=== PATIENT | male | born 1930 | race Caucasian/White ===

== ENCOUNTER 2019-12-03 15:51 | Inpatient (IN) | payer MEDICARE ==
[2019-12-03 16:32] LABS: #Eosinphils 0.1 thou/uL (0.0-0.7); #Lymphocytes 0.8 thou/uL (1.20-3.40); #Monocytes 0.6 thou/uL (0.11-0.59); %Basophils 0.2 % (0.0-1.0); %Eosinophils 0.9 % (0.0-10.0); %Lymphocytes 6.3 % (21.0-51.0); %Monocytes 5.1 % (0.0-10.0); %Neutrophils 87.6 % (42.0-75.0); Mean Corpuscular HGB CONC 33.9 g/dL (32.0-36.0); Mean Corpuscular Hemoglobin 30.1 pg (27.0-31.0); Mean Corpuscular Volume 88.5 fL (78.0-98.0); Mean Platelet Volume 7.5 fL (7.4-10.4); Platelet Count 169 thou/uL (130-400); RBC Distribution Width 12.9 % (11.5-14.5); Red Blood Cell (RBC) Count 4.98 mill/uL (4.70-6.10); White Blood Cell (WBC) Count 12.5 thou/uL (4.8-10.8)
[2019-12-03 16:36] LABS: INR-International Normal Ratio 2.3; PTT 32.4 SEC (22.9-36.1); Prothrombin Time 25.1 SEC (12.0-14.7)
[2019-12-03 16:43] LABS: ALT (SGPT) 25 U/L (8-55); AST (SGOT) 32 U/L (5-34); Albumin 4.3 g/dL (3.4-4.8); Alkaline Phosphatase 68 U/L (40-110); Anion Gap 15 mmol/L (10-20); BUN (Urea Nitrogen) 17 mg/dL (8.4-25.7); Bilirubin, Total 0.7 mg/dL (0.2-1.2); Calc. Creatinine Clearance 0 mL/min (70-130); Calcium 9.3 mg/dL (7.8-10.44); Carbon Dioxide 20 mmol/L (23-31); Chloride 108 mmol/L (98-107); Estimated GFR-MDRD 88; Globulin 2.4 g/dL (2.4-3.5); Glucose 162 mg/dL (83-110); Protein, Total 6.7 g/dL (5.8-8.1); Sodium 139 mmol/L (136-145)
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
[2019-12-03 16:52] VITALS: BMI 29.1
[2019-12-03] MEDS ORDERED: Ondansetron PF 4 MG/2 ML Vial IVP PRN (17:03)
[2019-12-03] MEDS ORDERED: Dextrose 50% Abboject 50 ML SYRINGE SLOW IVP PRN (17:03)
[2019-12-03] MEDS ORDERED: Dextrose 5% in Water 1,000 ML IV PRN (17:03)
[2019-12-03] MEDS ORDERED: Acetaminophen 500 MG TAB PO PRN (17:06)
[2019-12-03] MEDS: Dexamethasone 4 mg/ml Vial SLOW IVP SCH (17:18)
[2019-12-03] MEDS ORDERED: Lactated Ringer's 1,000 ML IV SCH (17:45)
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
[2019-12-03] MEDS ORDERED: traMADol HCl 50 MG TAB PO PRN (18:31)
[2019-12-03] MEDS ORDERED: Cyclobenzaprine 10 MG TAB PO PRN (18:31)
[2019-12-03] MEDS ORDERED: Ibuprofen 600 MG TAB PO PRN (18:31)
[2019-12-03] MEDS ORDERED: Rosuvastatin 10 MG TAB PO SCH ×2 (21:00)
[2019-12-03] MEDS ORDERED: Digoxin 0.25 MG TAB PO SCH (21:00)
[2019-12-04] MEDS: Dexamethasone 4 mg/ml Vial SLOW IVP SCH ×3 (00:43→11:09)
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
[2019-12-04 03:29] LABS: #Lymphocytes 0.9 thou/uL (1.20-3.40); #Monocytes 0.4 thou/uL (0.11-0.59); #Neutrophils 7.7 thou/uL (1.40-6.50); %Basophils 0.1 % (0.0-1.0); %Eosinophils 0.1 % (0.0-10.0); %Lymphocytes 10.1 % (21.0-51.0); %Monocytes 4.5 % (0.0-10.0); %Neutrophils 85.3 % (42.0-75.0); Hemoglobin 14.3 g/dL (14.0-18.0); Mean Corpuscular Hemoglobin 30.9 pg (27.0-31.0); Mean Corpuscular Volume 88.3 fL (78.0-98.0); Mean Platelet Volume 7.7 fL (7.4-10.4); Platelet Count 178 thou/uL (130-400); RBC Distribution Width 12.9 % (11.5-14.5); Red Blood Cell (RBC) Count 4.61 mill/uL (4.70-6.10)
[2019-12-04 03:31] LABS: INR-International Normal Ratio 1.5; Prothrombin Time 17.8 SEC (12.0-14.7)
[2019-12-04 03:44] LABS: Anion Gap 13 mmol/L (10-20); BUN (Urea Nitrogen) 14 mg/dL (8.4-25.7); Calc. Creatinine Clearance 85 mL/min (70-130); Calcium 9.2 mg/dL (7.8-10.44); Carbon Dioxide 24 mmol/L (23-31); Chloride 105 mmol/L (98-107); Estimated GFR-MDRD Greater than 90; Glucose 161 mg/dL (83-110); Magnesium 1.8 mg/dL (1.6-2.6); Phosphorus 3.1 mg/dL (2.3-4.7); Potassium 4.2 mmol/L (3.5-5.1); Sodium 138 mmol/L (136-145)
[2019-12-04] MEDS ORDERED: Magnesium 2 GM/50 ML 2 GM in Premix Bag 1 BAG IVPB SCH (08:45)
[2019-12-04] MEDS ORDERED: Verapamil 80 MG TAB PO SCH (09:00)
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
[2019-12-04] MEDS ORDERED: Digoxin 0.25 MG TAB PO SCH (10:45)
[2019-12-04 11:03] VITALS: TEMP 99.3
[2019-12-04] MEDS ORDERED: Ibuprofen 200 MG TAB PO PRN (11:08)
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
[2019-12-04 13:20] VITALS: BP 151/79
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
== END 2019-12-04 16:00 | disposition home or self-care (01) | DRG 562 ==
LOC: ERS 15:51 → CCU 16:19
PROVIDERS: ADMIT Surgery; ATTEND Surgery
PROC: 5A1935Z Respiratory Ventilation, Less than 24 Consecutive Hours (ICD-10-PCS; principal; 2019-12-03)
DX: S42.032A Displaced fracture of lateral end of left clavicle, initial encounter for closed fracture (principal); J96.00 Acute respiratory failure, unspecified whether with hypoxia or hypercapnia; S22.31XA Fracture of one rib, right side, initial encounter for closed fracture; D68.8 Other specified coagulation defects; T45.515A Adverse effect of anticoagulants, initial encounter; R40.2412 Glasgow coma scale score 13-15, at arrival to emergency department; E07.89 Other specified disorders of thyroid; V04.90XA Pedestrian on foot injured in collision with heavy transport vehicle or bus, unspecified whether traffic or nontraffic accident, initial encounter; Z79.01 Long term (current) use of anticoagulants; Z88.0 Allergy status to penicillin
CPT/HCPCS: 36415; 70450; 80048; 80162; 83605; 83735; 84100; 85025; 85610; 86850; 86900; 86901; 94002; 94640; G0390; J1100; J3475; J7620

== ENCOUNTER 2019-12-31 11:38 | Outpatient (CLI) | payer MEDICARE, OTHER ==
[2020-01-01 18:34] LABS: SARS-CoV-2 MS2 Positive; SARS-CoV-2 N Gene Negative; SARS-CoV-2 S Gene Negative; SARS-CoV-2 orf1ab Negative
== END 2019-12-31 11:39 | disposition home or self-care (01) ==
LOC: LAB 11:38
PROVIDERS: ATTEND Specialist
DX: Z11.59 Encounter for screening for other viral diseases (principal)
CPT/HCPCS: 87635; U0003

== ENCOUNTER 2020-01-02 12:17 | Day surgery (SDC) | payer MEDICARE ==
[2020-01-02] MEDS ORDERED: Sodium Bicarbonate 2.5 MEQ/5 ML VIAL ONE (12:50)
[2020-01-02] MEDS ORDERED: Lidocaine 1% PF 5 ML VIAL ONE (12:50)
--- NOTE | 2020-01-02 14:13 | ULT ---
Sonographic guided fine needle aspiration left thyroid mass. HISTORY: Left thyroid mass. FINDINGS: After explaining the procedure and answering all questions, the large aggressive complex cy stic lesion at the left thyroid lobe was again visualized. Sterile technique, buffered local anesthesia, sonographic guidance, and an anterior lateral approach were used to carefully advance a 2 5-gauge needle into the solid component of the complex mass. A total of 4 25-gauge FNA samples were obtained. A 20-gauge spinal needle was then inserted into the cystic component of the lesion, and 10 cc of slig htly cloudy padmini liquid was aspirated and submitted to pathology. Postprocedure imaging shows no evidence of complication. Patient tolerated procedure well and was dismissed in good condition. IMPRESSION : Technically successful sonographic guided FNA left thyroid mass. Pathology is pending.
[2020-01-02 14:39] VITALS: BP 139/69; TEMP 98.8
== END 2020-01-02 13:40 | disposition home or self-care (01) ==
LOC: ULT 12:17
PROVIDERS: ATTEND Specialist
PROC: 0G9G3ZX Drainage of Left Thyroid Gland Lobe, Percutaneous Approach, Diagnostic (ICD-10-PCS; principal; 2020-01-02)
DX: E07.9 Disorder of thyroid, unspecified (principal); E04.9 Nontoxic goiter, unspecified; I25.10 Atherosclerotic heart disease of native coronary artery without angina pectoris; I48.91 Unspecified atrial fibrillation; I10 Essential (primary) hypertension; G62.9 Polyneuropathy, unspecified; I35.0 Nonrheumatic aortic (valve) stenosis; E78.00 Pure hypercholesterolemia, unspecified; Z79.01 Long term (current) use of anticoagulants; Z79.899 Other long term (current) drug therapy; Z88.0 Allergy status to penicillin
CPT/HCPCS: 60100; 76942; 88173; 88305; J2001

== ENCOUNTER 2020-02-03 07:59 | Outpatient (CLI) | payer MEDICARE, OTHER ==
[2020-02-03 16:17] LABS: Hemoglobin 14.9 g/dL (14.0-18.0)
[2020-02-03 16:28] LABS: Anion Gap 13 mmol/L (10-20); BUN (Urea Nitrogen) 15 mg/dL (8.4-25.7); Calc. Creatinine Clearance 0 mL/min (70-130); Calcium 9.7 mg/dL (7.8-10.44); Carbon Dioxide 27 mmol/L (23-31); Chloride 104 mmol/L (98-107); Estimated GFR-MDRD 76; Glucose 157 mg/dL (83-110); Potassium 4.1 mmol/L (3.5-5.1); Sodium 140 mmol/L (136-145)
[2020-02-04 12:45] LABS: SARS-CoV-2 MS2 Positive; SARS-CoV-2 N Gene Negative; SARS-CoV-2 S Gene Negative; SARS-CoV-2 orf1ab Negative
== END 2020-02-03 08:00 | disposition home or self-care (01) ==
LOC: LABBT 07:59
PROVIDERS: ATTEND Specialist
DX: Z01.818 Encounter for other preprocedural examination (principal); Z11.59 Encounter for screening for other viral diseases; Z51.81 Encounter for therapeutic drug level monitoring; E07.9 Disorder of thyroid, unspecified; R59.1 Generalized enlarged lymph nodes; R59.0 Localized enlarged lymph nodes; E04.9 Nontoxic goiter, unspecified; I48.91 Unspecified atrial fibrillation; R13.10 Dysphagia, unspecified; Z79.01 Long term (current) use of anticoagulants
CPT/HCPCS: 80048; 85014; 85018; U0003; 87635; 93005; 93010

== ENCOUNTER 2020-02-05 10:53 | Day surgery (SDC) | payer MEDICARE ==
[2020-02-02 12:06] VITALS: BMI 28.3
[2020-02-05 12:17] LABS: INR-International Normal Ratio 1.1; PTT 31.2 sec (22.9-36.1); Prothrombin Time 13.8 sec (12.0-14.7)
[2020-02-05] MEDS ORDERED: Fentanyl 250 MCG/5 ML VIAL ONE (12:42)
[2020-02-05] MEDS ORDERED: Lidocaine 1% w/Epinephrine 1:100K 20 ML VIAL ONE (13:20)
[2020-02-05] MEDS ORDERED: Succinylcholine Chloride 20 MG/ML 10 ml SYRINGE FS ONE (15:17)
[2020-02-05] MEDS ORDERED: Dexamethasone 20 MG/5 ML VIAL ONE (15:17)
[2020-02-05] MEDS ORDERED: Lidocaine 1% PF 5 ML VIAL ONE (15:17)
[2020-02-05] MEDS ORDERED: PROPOFOL 200 MG/20 ML VIAL ONE (15:17)
[2020-02-05] MEDS ORDERED: Ondansetron PF 4 MG/2 ML Vial ONE (15:17)
[2020-02-05] MEDS ORDERED: Labetalol HCl 100 MG/20 ML VIAL ONE (17:23)
[2020-02-05] MEDS ORDERED: Fentanyl 100 MCG/2 ML VIAL ONE (17:25)
--- NOTE | 2020-02-09 08:52 | OP ---
DATE OF PROCEDURE: 02/05/2020 PREOPERATIVE DIAGNOSES: 1. Large left thyroid mass. 2. Left substernal goiter. 3. Dysphagia. 4. Shortness of breath. POSTOPERATIVE DIAGNOSES: 1. Large left thyroid mass. 2. Left substernal goiter. 3. Dysphagia. 4. Shortness of breath. PROCEDURES PERFORMED: 1. Left thyroid lobectomy. 2. Resection of left thyroid substernal goiter using a laryngeal nerve monitoring for 2 hours. PROCEDURE IN DETAIL: After consent was obtained, the patient was identified and brought to the operating room and placed on the operating room table in supine position. General endotracheal anesthesia was obtained with a laryngeal nerve monitor and the tube was found to be placed correctly and functioning normally. It was then hooked up to the [facility] nerve monitor and again documented to be functioning normally. We then proceeded with prepping and draping the patient and was able to extend the neck slightly. An incision was made through a natural skin crease and carried down through the skin, subcutaneous tissues, and subplatysmal flap. We then continued to dissect through the platysma. Subplatysmal flaps were elevated inferiorly and superiorly and a self-retaining retractor was placed. Strap muscles were divided in the midline, at which time the capsule was encountered and found to be very friable. Once identified the thyroid, the strap muscle fascia was then dissected meticulously from the thyroid capsule. The thyroid was extremely large, and with significant difficulty and finger dissection, the thyroid was liberated from the substernal space near the aortic arch. Ultimately, it was able to be delivered into the wound, that allowed continued dissection of the recurrent laryngeal nerve with transection of the superior, middle, and inferior vessels. Upon reflection of the thyroid, the thyroid ligament was transected as was the isthmus. This was then sent for histologic evaluation and found to be consistent with a benign process without any evidence of malignancy. We then placed Surgicel within the deep aspect of the wound and placed a self-contained drain, which was suture secured to the skin. The wound was closed in layers with strap muscles being reapproximated as well as platysma with Monocryl and also the dermis was reapproximated with 5-0 Monocryl. The skin was closed with 6-0 Prolene, after which Steri-Strips and a sterile dressing were applied. The patient was awakened with a normal voice and minimal drain output, then ultimately discharged home for followup the following day in my office. Job ID: [id number]
== END 2020-02-05 19:12 | disposition home or self-care (01) ==
LOC: SDC 10:53
PROVIDERS: ATTEND Specialist
PROC: 0GTG0ZZ Resection of Left Thyroid Gland Lobe, Open Approach (ICD-10-PCS; principal; 2020-02-05)
DX: E04.1 Nontoxic single thyroid nodule (principal); E04.9 Nontoxic goiter, unspecified; R59.1 Generalized enlarged lymph nodes; I48.91 Unspecified atrial fibrillation; I25.10 Atherosclerotic heart disease of native coronary artery without angina pectoris; I10 Essential (primary) hypertension; E78.00 Pure hypercholesterolemia, unspecified; G62.9 Polyneuropathy, unspecified; I35.0 Nonrheumatic aortic (valve) stenosis; Z79.01 Long term (current) use of anticoagulants; Z79.899 Other long term (current) drug therapy; Z88.0 Allergy status to penicillin; Z95.5 Presence of coronary angioplasty implant and graft
CPT/HCPCS: 36415; 85610; 85730; 88307; 88311; 88331; 88332; 88334; J1100; J2001; J2405; J2704; J3010